=== PATIENT | male | born 1970 | race Caucasian/White ===

== ENCOUNTER 2018-02-21 17:06 | Inpatient (IN) | payer MEDICAID ==
[~2018-02-21] VITALS: Ht 175.3 cm; Wt 74.4 kg
[~2018-02-21 17:06] MED LIST: BUSP10TA23 PO; CITA-106 PO; OLAN10TA3 PO; OLAN20TA2 PO
[2018-02-21] MEDS ORDERED: HALO50VI4 IM (20:06)
[2018-02-21] MEDS ORDERED: LORazepam 2 MG/ML VIAL IM ONE (22:00)
[2018-02-21] MEDS ORDERED: HALOPERIDOL LACTATE 5 MG/ML VIAL IM ONE (22:00)
[2018-02-21] MEDS ORDERED: DiphenhydrAMINE HCL 50 MG/ML VIAL IM ONE (22:00)
[2018-02-22 02:16] VITALS: BP 146/77
[2018-02-22 08:27] VITALS: BP 124/62
[2018-02-22] MEDS: LORazepam 2 MG TABLET PO PRN (08:45)
[2018-02-22] MEDS: HALOPERIDOL 5 MG TABLET PO PRN (08:45)
[2018-02-22 16:24] VITALS: BP 120/68
[2018-02-22] MEDS ORDERED: MAGNESIUM HYDROXIDE SUSPENSION 30 ML UDCUP PO PRN (20:30)
[2018-02-22] MEDS ORDERED: PETROLATUM,WHITE 71 GM JELLY TP PRN (20:30)
[2018-02-22] MEDS ORDERED: BACITRACIN 28.4 GM OINTMENT TP PRN (20:30)
[2018-02-22] MEDS ORDERED: LOPERAMIDE HCL 2 MG CAPSULE PO PRN (20:30)
[2018-02-22] MEDS ORDERED: ALBUTEROL SULFATE HFA 90 MCG/PUFF 8 GM INHALER IH PRN (20:30)
[2018-02-22] MEDS ORDERED: ONDANSETRON HCL 4 MG TABLET PO PRN (20:30)
[2018-02-22] MEDS ORDERED: IBUPROFEN 600 MG TABLET PO PRN (20:30)
[2018-02-22] MEDS ORDERED: BENZOCAINE/MENTHOL LOZENGE MM PRN (20:30)
[2018-02-22] MEDS ORDERED: MAG HYDROX/AL HYDROX/SIMETH ES 30 ML SUSPENSION UDCUP PO PRN (20:30)
[2018-02-22] MEDS ORDERED: ACETAMINOPHEN 325 MG TABLET PO PRN (20:30)
[2018-02-22] MEDS ORDERED: CloNIDine HCL 0.1 MG TABLET PO PRN (20:30)
[2018-02-22] MEDS: OLANZapine 10 MG TABLET PO SCH (21:17)
[2018-02-23 04:20] VITALS: BP 110/68
[2018-02-23 08:11] VITALS: BP 116/74
[2018-02-23] MEDS: DOCUSATE SODIUM 100 MG CAPSULE PO SCH (09:03)
[2018-02-23] MEDS: OMEPRAZOLE 20 MG CAPSULE PO SCH (09:03)
[2018-02-23 16:13] VITALS: BP 110/68
[2018-02-23] MEDS: OLANZapine 10 MG TABLET PO SCH (20:35)
[2018-02-23] MEDS: ZOLPIDEM TARTRATE 10 MG TABLET PO PRN (20:35)
[2018-02-24] MEDS: OMEPRAZOLE 20 MG CAPSULE PO SCH (08:33)
[2018-02-24] MEDS: DOCUSATE SODIUM 100 MG CAPSULE PO SCH (08:34)
[2018-02-24] MEDS: ZOLPIDEM TARTRATE 10 MG TABLET PO PRN (20:29)
[2018-02-24] MEDS: OLANZapine 10 MG TABLET PO SCH (20:29)
[2018-02-25 08:16] VITALS: BP 125/73
[2018-02-25] MEDS: DOCUSATE SODIUM 100 MG CAPSULE PO SCH (08:39)
[2018-02-25] MEDS: OMEPRAZOLE 20 MG CAPSULE PO SCH (08:39)
[2018-02-25 16:14] VITALS: BP 128/86
[2018-02-25] MEDS: OLANZapine 10 MG TABLET PO SCH (20:58)
[2018-02-25] MEDS: ZOLPIDEM TARTRATE 10 MG TABLET PO PRN (20:59)
[2018-02-26] MEDS: DOCUSATE SODIUM 100 MG CAPSULE PO SCH (09:17)
[2018-02-26] MEDS: OMEPRAZOLE 20 MG CAPSULE PO SCH (09:17)
[2018-02-26 16:35] VITALS: BP 128/87
[2018-02-26] MEDS: ZOLPIDEM TARTRATE 10 MG TABLET PO PRN (20:42)
[2018-02-26] MEDS: OLANZapine 10 MG TABLET PO SCH (20:42)
[2018-02-27 08:14] VITALS: BP 114/62
[2018-02-27 08:24] LABS: BASOPHILS % (AUTO) 0.1 % (0.0-2.0); EOSINOPHILS % (AUTO) 0.4 % (1.0-6.0); HEMATOCRIT 42.8 % (41-53); LYMPHOCYTES # (AUTO) 1.8 K/uL (1.0-4.8); LYMPHOCYTES % (AUTO) 32.5 % (22.0-44.0); MEAN CORPUSCULAR HEMOGLOBIN 30.7 pg (26.0-34.0); MEAN CORPUSCULAR VOLUME 88 fL (80-100); MONOCYTES # (AUTO) 0.4 K/uL (0.1-1.0); MONOCYTES % (AUTO) 7.2 % (2.0-9.0); NEUTROPHILS # (AUTO) 3.3 K/uL (1.8-7.7); NEUTROPHILS % (AUTO) 59.8 % (40.0-70.0); PLATELET COUNT (AUTO) 199 K/uL (150-450); RED BLOOD CELL COUNT(AUTO) 4.87 MIL/uL (4.50-5.90); RED CELL DISTRIBUTION WIDTH 12.9 % (11.5-14.5)
[2018-02-27] MEDS: DOCUSATE SODIUM 100 MG CAPSULE PO SCH (08:31)
[2018-02-27] MEDS: OMEPRAZOLE 20 MG CAPSULE PO SCH (08:31)
[2018-02-27 08:39] LABS: HEMOGLOBIN A1C 4.9 % (4.5-6.2)
[2018-02-27 08:53] LABS: ALANINE AMINOTRANSFERASE 19 U/L (12-78); ALBUMIN 4.1 g/dL (3.4-5.0); ALKALINE PHOSPHATASE 114 U/L (46-116); ANION GAP 6 mmol/L (8-16); ASPARTATE AMINOTRANSFERASE 11 U/L (15-37); BILIRUBIN,TOTAL 0.4 mg/dL (0.1-1.0); CALCIUM, TOTAL 9.4 mg/dL (8.8-10.5); CARBON DIOXIDE 30 mmol/L (22-29); CHLORIDE 103 mmol/L (98-107); CHOLESTEROL 135 mg/dL (131-200); CREATININE 0.88 mg/dL (0.60-1.30); FREE T4 (FREE THYROXINE) 0.96 ng/dL (0.76-1.46); GLOMERULAR FILTR. RATE CALC > 60 mL/min (>60); GLUCOSE,RANDOM 96 mg/dL (70-110); HDL CHOLESTEROL 27 mg/dL (40-60); LDL CHOL (CALC.) 76 mg/dL (0-130); POTASSIUM 4.2 mmol/L (3.5-5.1); SODIUM SERUM 139 mmol/L (136-145); THYROID STIMULATING HORMONE 2.84 uIU/mL (0.36-3.74); TOTAL PROTEIN, SERUM 7.9 g/dL (6.4-8.2); TRIGLYCERIDES 158 mg/dL (15-150); UREA NITROGEN, BLOOD 15 mg/dL (7-18)
[2018-02-27 16:08] VITALS: BP 126/75
[2018-02-27] MEDS: RisperiDONE 1 MG TABLET PO SCH (16:34)
[2018-02-27] MEDS: LORazepam 2 MG TABLET PO PRN (16:35)
[2018-02-27] MEDS: OLANZapine 10 MG TABLET PO SCH (20:12)
[2018-02-28 06:30] VITALS: BP 118/75
[2018-02-28 08:13] VITALS: BP 122/75
[2018-02-28] MEDS: OMEPRAZOLE 20 MG CAPSULE PO SCH (09:14)
[2018-02-28] MEDS: RisperiDONE 1 MG TABLET PO SCH ×2 (09:14→16:19)
[2018-02-28] MEDS: DOCUSATE SODIUM 100 MG CAPSULE PO SCH (09:14)
[2018-02-28 16:00] VITALS: BP 109/70
[2018-02-28] MEDS: LORazepam 2 MG TABLET PO PRN (16:19)
[2018-02-28] MEDS: OLANZapine 10 MG TABLET PO SCH (20:09)
[2018-03-01 08:18] VITALS: BP 117/70
[2018-03-01] MEDS: OMEGA-3/DHA/EPA/FISH OIL 1,000 MG CAPSULE PO SCH (09:07)
[2018-03-01] MEDS: OMEPRAZOLE 20 MG CAPSULE PO SCH (09:40)
[2018-03-01] MEDS: RisperiDONE 1 MG TABLET PO SCH ×2 (09:40→16:18)
[2018-03-01] MEDS: DOCUSATE SODIUM 100 MG CAPSULE PO SCH (09:40)
[2018-03-01] MEDS: LORazepam 2 MG TABLET PO PRN (09:56)
[2018-03-01] MEDS ORDERED: OLAN10TA3 PO (15:55)
[2018-03-01] MEDS ORDERED: RISP1 PO (15:55)
[2018-03-01] MEDS ORDERED: OMEG-135 PO (15:56)
[2018-03-01 16:00] VITALS: BP 114/63
[2018-03-01] MEDS: OLANZapine 10 MG TABLET PO SCH (20:11)
[2018-03-02 05:51] VITALS: BP 123/86
[2018-03-02 08:14] VITALS: BP 128/84
[2018-03-02] MEDS: OMEPRAZOLE 20 MG CAPSULE PO SCH (08:38)
[2018-03-02] MEDS: RisperiDONE 1 MG TABLET PO SCH ×2 (08:38→16:52)
[2018-03-02] MEDS: OMEGA-3/DHA/EPA/FISH OIL 1,000 MG CAPSULE PO SCH (08:38)
[2018-03-02] MEDS: DOCUSATE SODIUM 100 MG CAPSULE PO SCH (08:38)
[2018-03-02] MEDS ORDERED: INSULIN LISPRO 100 UNITS/ML SQ PRN (14:30)
[2018-03-02] MEDS ORDERED: GLUCAGON,HUMAN RECOMBINANT 1 MG VIAL IM PRN (14:30)
[2018-03-02 16:00] VITALS: BP 121/83
[2018-03-02] MEDS ORDERED: GlipiZIDE 10 MG TABLET PO SCH (16:30)
[2018-03-02] MEDS: LORazepam 2 MG TABLET PO PRN (16:52)
[2018-03-02] MEDS ORDERED: MetFORMIN HCL 500 MG TABLET PO SCH (17:00)
[2018-03-02] MEDS: OLANZapine 10 MG TABLET PO SCH (20:54)
[2018-03-02] MEDS ORDERED: DIVALPROEX SODIUM 500 MG ER TABLET PO SCH (21:00)
[2018-03-02] MEDS ORDERED: INSULIN GLARGINE,HUM.REC.ANLOG 100 UNITS/ML SQ SCH (21:00)
[2018-03-03 06:36] VITALS: BP 113/71
[2018-03-03 08:10] VITALS: BP 116/70
[2018-03-03] MEDS: OMEPRAZOLE 20 MG CAPSULE PO SCH (08:11)
[2018-03-03] MEDS: RisperiDONE 1 MG TABLET PO SCH ×2 (08:11→16:13)
[2018-03-03] MEDS: DOCUSATE SODIUM 100 MG CAPSULE PO SCH (08:11)
[2018-03-03] MEDS: OMEGA-3/DHA/EPA/FISH OIL 1,000 MG CAPSULE PO SCH (08:11)
[2018-03-03] MEDS: LORazepam 2 MG TABLET PO PRN ×2 (10:11→16:13)
[2018-03-03 16:00] VITALS: BP 120/79
[2018-03-03] MEDS: OLANZapine 10 MG TABLET PO SCH (20:27)
[2018-03-04 03:34] VITALS: BP 123/79
[2018-03-04] MEDS: DOCUSATE SODIUM 100 MG CAPSULE PO SCH (08:01)
[2018-03-04] MEDS: OMEPRAZOLE 20 MG CAPSULE PO SCH (08:01)
[2018-03-04] MEDS: LORazepam 2 MG TABLET PO PRN ×2 (08:01→17:18)
[2018-03-04] MEDS: HALOPERIDOL 5 MG TABLET PO PRN ×2 (08:01→17:18)
[2018-03-04] MEDS: RisperiDONE 1 MG TABLET PO SCH (08:01)
[2018-03-04] MEDS: OMEGA-3/DHA/EPA/FISH OIL 1,000 MG CAPSULE PO SCH (08:01)
[2018-03-04 08:13] VITALS: BP 130/76
[2018-03-04] MEDS: RisperiDONE 2 MG TABLET PO SCH (17:18)
[2018-03-04] MEDS: OLANZapine 10 MG TABLET PO SCH (21:06)
[2018-03-04] MEDS: ZOLPIDEM TARTRATE 10 MG TABLET PO PRN (21:06)
[2018-03-05 07:02] VITALS: BP 118/72
[2018-03-05] MEDS: OMEGA-3/DHA/EPA/FISH OIL 1,000 MG CAPSULE PO SCH (08:06)
[2018-03-05] MEDS: LORazepam 2 MG TABLET PO PRN (08:06)
[2018-03-05] MEDS: DOCUSATE SODIUM 100 MG CAPSULE PO SCH (08:06)
[2018-03-05] MEDS: HALOPERIDOL 5 MG TABLET PO PRN (08:06)
[2018-03-05] MEDS: OMEPRAZOLE 20 MG CAPSULE PO SCH (08:06)
[2018-03-05] MEDS: RisperiDONE 2 MG TABLET PO SCH ×2 (08:06→16:51)
[2018-03-05 08:09] VITALS: BP 116/75
[2018-03-05 16:00] VITALS: BP 108/70
[2018-03-05] MEDS: OLANZapine 10 MG TABLET PO SCH (20:39)
[2018-03-06 06:00] VITALS: BP 122/72
[2018-03-06] MEDS: LORazepam 2 MG TABLET PO PRN (08:13)
[2018-03-06] MEDS: HALOPERIDOL 5 MG TABLET PO PRN (08:13)
[2018-03-06] MEDS: RisperiDONE 2 MG TABLET PO SCH (08:13)
[2018-03-06] MEDS: OMEPRAZOLE 20 MG CAPSULE PO SCH (08:14)
[2018-03-06] MEDS: OMEGA-3/DHA/EPA/FISH OIL 1,000 MG CAPSULE PO SCH (08:14)
[2018-03-06] MEDS: DOCUSATE SODIUM 100 MG CAPSULE PO SCH (08:14)
[2018-03-06 08:15] VITALS: BP 118/74
== END 2018-03-06 14:54 | disposition home or self-care (01) | DRG 750 ==
LOC: EMS 17:07 → B3A 23:30
PROVIDERS: ADMIT Psychiatry & Neurology Psychiatry; ATTEND Psychiatry & Neurology Psychiatry
DX: F20.0 Paranoid schizophrenia (principal); E78.00 Pure hypercholesterolemia, unspecified; F12.90 Cannabis use, unspecified, uncomplicated; F15.10 Other stimulant abuse, uncomplicated; G47.00 Insomnia, unspecified; F17.210 Nicotine dependence, cigarettes, uncomplicated; F84.0 Autistic disorder; J44.9 Chronic obstructive pulmonary disease, unspecified; K21.9 Gastro-esophageal reflux disease without esophagitis; Z79.899 Other long term (current) drug therapy; Z71.6 Tobacco abuse counseling; Z71.51 Drug abuse counseling and surveillance of drug abuser; Z79.51 Long term (current) use of inhaled steroids
CPT/HCPCS: 83036; 84439; 84443; 90686; 99285; J1815